=== PATIENT | female | born 1995 | race Two or more races ===

== ENCOUNTER 2016-11-21 19:19 | Emergency (ER) | payer SELFPAY ==
[~2016-11-21] VITALS: Ht 172.7 cm; Wt 53.1 kg
[2016-11-21 19:34] VITALS: BP 124/65
[2016-11-21 20:22] LABS: Basophils # (auto) 0 uL; Basophils % (auto) 0.3 % (0.0-2.0); Eosinophils # (auto) 0.6 uL; Eosinophils % (auto) 4.5 % (0.0-7.0); Hematocrit 41.2 % (36.0-46.0); Lymphocytes # (auto) 3.8 uL; Lymphocytes % (auto) 30.8 % (10.0-50.0); Mean Corpuscular Hemoglobin 28.3 pg (28.0-32.0); Mean Corpuscular Hgb Conc. 31.5 g/dL (32.0-36.0); Mean Corpuscular Volume 89.8 fL (80.0-100.0); Mean Platelet Volume 8.9 fL (7.4-10.4); Monocytes # (auto) 0.6 uL; Neutrophils # (auto) 7.4 uL; Neutrophils % (auto) 59.4 % (37.0-80.0); Platelet Count (auto) 287 10^3/uL (140-450); Red Cell Distribution Width 13.2 % (11.6-16.0); White Blood Cell 12.5 10^3/uL (4.4-10.8)
[2016-11-21 20:36] LABS: Urine Bilirubin Negative (Negative); Urine Color Yellow (Yellow); Urine Glucose Normal (Normal); Urine Ketone Negative (Negative); Urine Nitrite Negative (Negative); Urine RBC 74 /hpf (0 - 4); Urine Squamous Epithelial Cell FEW /hpf (<5); Urine Urobilinogen Normal (Negative)
[2016-11-21 20:37] LABS: Urine Blood 2+ /uL (Negative)
[2016-11-21 20:55] LABS: Albumin 3.9 g/dL (3.4-5.0); BUN/Creatinine Ratio 11.4; Calcium 8.6 mg/dL (8.5-10.1); Potassium 3.5 mmol/L (3.5-5.1)
[2016-11-21 20:58] LABS: Bilirubin, Total 0.7 mg/dL (0.2-1.0); Total Protein 7.1 g/dL (6.4-8.2)
== END 2016-11-22 02:29 | disposition left against medical advice (07) ==
LOC: ER 19:23
DX: N93.9 Abnormal uterine and vaginal bleeding, unspecified (principal); Z53.21 Procedure and treatment not carried out due to patient leaving prior to being seen by health care provider
CPT/HCPCS: 36415; 80053; 81001; 84702; 85025

== ENCOUNTER 2018-09-17 18:57 | Observation (INO) | payer BC ==
[2018-09-17] MEDS ORDERED: LACTATED RINGER'S 1,000 ML IV ONE (19:54)
[2018-09-17] MEDS ORDERED: TERBUTALINE SULFATE 1 MG/ML 1ML VIAL SC SCH (20:00)
== END 2018-09-17 22:50 | disposition home or self-care (01) | DRG 833 ==
LOC: LDRP 18:57
PROVIDERS: ADMIT Specialist; ATTEND Specialist
DX: O21.2 Late vomiting of pregnancy (principal); O26.893 Other specified pregnancy related conditions, third trimester; R10.30 Lower abdominal pain, unspecified; Z3A.31 31 weeks gestation of pregnancy
CPT/HCPCS: 59025; 76818; 81002; 96372; G0378; J3105; 96361; 96366

== ENCOUNTER 2018-10-06 00:40 | Observation (INO) | payer BC ==
[~2018-10-06] VITALS: Ht 167.6 cm; Wt 63.5 kg
[2018-10-06] MEDS ORDERED: LACTATED RINGER'S 1,000 ML IV ONE (01:00)
[2018-10-06] MEDS ORDERED: TERBUTALINE SULFATE 1 MG/ML 1ML VIAL SC ONE (01:03)
[2018-10-06] MEDS: TERBUTALINE SULFATE 1 MG/ML 1ML VIAL SC SCH ×2 (01:09→01:29)
== END 2018-10-06 02:46 | disposition home or self-care (01) | DRG 833 ==
LOC: LDRP 00:40
PROVIDERS: ADMIT Obstetrics & Gynecology; ATTEND Obstetrics & Gynecology
DX: O60.03 Preterm labor without delivery, third trimester (principal); Z3A.33 33 weeks gestation of pregnancy
CPT/HCPCS: 59025; 81002; 96372; G0378; J3105; 96365; 96366